=== PATIENT | female | born 1995 | race Caucasian/White ===

== ENCOUNTER 2017-04-13 19:11 | Emergency (ER) | payer BC, OTHER ==
[~2017-04-13] VITALS: Ht 167.6 cm; Wt 69.9 kg
[~2017-04-13 19:11] MED LIST: BUDE90AE IH; CYMBALTA; FIORICET; LAMICTAL; LEVA15HF5 IH; TRAZADONE; VIVANCE; [UNRECOGNIZED DRUG - REMARK]
[2017-04-13] MEDS ORDERED: PRED20TA PO (19:25)
[2017-04-13] MEDS ORDERED: ONDANSETRON 4 MG/2 ML VIAL IV ONE (21:15)
[2017-04-13] MEDS ORDERED: HYDROMORPHONE 1 MG/1 ML DISP.SYRIN IV ONE ×2 (21:15→23:00)
[2017-04-13] MEDS ORDERED: KETOROLAC TROMETHAMINE 30 MG INJ IVP ONE (21:15)
[2017-04-13] MEDS ORDERED: IV NORMAL SALINE 1000 ML BAG IV ONE ×3 (21:15→23:00)
--- NOTE | 2017-04-13 21:18 | NUR ---
Report given to Becka AVILA, Care endorsed.
--- NOTE | 2017-04-13 21:25 | NUR ---
lab at pt bedside
--- NOTE | 2017-04-13 21:32 | NUR ---
xray at pt bedside
[2017-04-13 21:33] LABS: BASOPHILS # (AUTO) 0.1 K/uL (0.0-8.0); BASOPHILS % (AUTO) 0.5 % (0.0-2.0); HEMATOCRIT 38.8 % (31.2-41.9); HEMOGLOBIN 13.1 g/dL (10.9-14.3); LYMPHOCYTES # (AUTO) 1.3 K/uL (20.0-40.0); LYMPHOCYTES % (AUTO) 11.7 % (20.5-51.5); MEAN CORPUSCULAR HEMOGLOBIN 29.6 uug (24.7-32.8); MEAN CORPUSCULAR HGB CONC 34 g/dL (32.3-35.6); MEAN CORPUSCULAR VOLUME 87.9 fL (75.5-95.3); MONOCYTES # (AUTO) 0.3 K/uL (2.0-10.0); MONOCYTES % (AUTO) 2.5 % (0.0-11.0); NEUTROPHILS # (AUTO) 9.3 K/uL (1.8-8.9); NEUTROPHILS % (AUTO) 85.3 % (38.5-71.5); PLATELET COUNT (AUTO) 253 K/uL (179-408); RED BLOOD CELL COUNT(AUTO) 4.42 MIL/uL (3.63-4.92); WHITE BLOOD COUNT (AUTO) 10.9 K/uL (3.8-11.8)
[2017-04-13 21:40] LABS: CREATININE 0.7 mg/dL (0.6-1.3); POTASSIUM 4.3 mmol/L (3.5-5.1)
[2017-04-13 21:54] LABS: BILIRUBIN,DIRECT 0.1 mg/dL (0.0-0.2); BILIRUBIN,TOTAL 0.3 mg/dL (0.2-1.0); TOTAL PROTEIN, SERUM 7.5 g/dL (6.4-8.2)
[2017-04-13] MEDS ORDERED: KETOROLAC TROMETHAMINE 30 MG INJ ONE (21:55)
[2017-04-13] MEDS ORDERED: HYDROMORPHONE 2 MG/1 ML DISP.SYRIN ONE ×2 (21:56→23:32)
[2017-04-13] MEDS ORDERED: ONDANSETRON 4 MG/2 ML VIAL ONE (21:56)
[2017-04-13 22:15] LABS: *MONOTEST NEGATIVE (NEGATIVE)
[2017-04-13 22:48] LABS: *URINE HCG, QUAL NEGATIVE (NEGATIVE)
--- NOTE | 2017-04-13 23:27 | NUR ---
Pt cont. to c/o severe BRYANT. Dr. Ley notified and pt medicated for discomfort. Will monitor for effects of medication.
--- NOTE | 2017-04-14 00:05 | NUR ---
Patient discharged to home in stable conditon. Written and verbal after care instructions given. Patient verbalizes understanding of instructions.
[2017-04-14 04:28] VITALS: BP 143/83
== END 2017-04-14 00:05 | disposition home or self-care (01) ==
LOC: ER 19:12
DX: G43.909 Migraine, unspecified, not intractable, without status migrainosus (principal); J45.909 Unspecified asthma, uncomplicated; Z88.0 Allergy status to penicillin; Z88.2 Allergy status to sulfonamides; M79.1 Myalgia
CPT/HCPCS: 36415; 71045; 80048; 80076; 84703; 85025; 85651; 86308; 87400; 96361; 96374; 96375; 96376; 99285; A4663; J1170 ×2; J1885; J2405; J7030

== ENCOUNTER 2019-02-16 12:44 | Emergency (ER) | payer BC, OTHER ==
[~2019-02-16] VITALS: Ht 167.6 cm; Wt 61.2 kg
[~2019-02-16 12:44] MED LIST changes: -LAMICTAL; +PRED20TA PO
[2019-02-16 13:06] LABS: *BILIRUBIN,URIN NEGATIVE (NEGATIVE); *BLOOD, URINE NEGATIVE (NEGATIVE); *CLARITY,URINE SLIGHTLY CLOUDY (CLEAR); *COLOR,URINE YELLOW (YELLOW); *KETONES,URINE 1+ (NEGATIVE); *UROBILINOGEN,URINE 0.2 E.U./dl (NORMAL); LEUKOCYTE ESTERASE ,URINE NEGATIVE (NEGATIVE); NITRITE, URINE NEGATIVE (NEGATIVE); UGLUCOSE NEGATIVE (NEGATIVE)
[2019-02-16 13:08] LABS: *URINE HCG, QUAL NEGATIVE (NEGATIVE)
[2019-02-16] MEDS ORDERED: IV NORMAL SALINE 1000 ML BAG IV ONE (13:15)
[2019-02-16] MEDS ORDERED: PANTOPRAZOLE SODIUM 40 MG VIAL IV ONE (13:15)
[2019-02-16] MEDS ORDERED: ONDANSETRON 4 MG/2 ML VIAL IV ONE (13:15)
[2019-02-16 13:17] LABS: BACTERIA,URINE FEW /HPF (NONE SEEN); MUCUS,URINE FEW /LPF (0-FEW); RBC,URINE NONE SEEN /HPF (0-3); SQUAMOUS EPITHELIAL CELL,UR FEW /HPF (NONE SEEN); WBC,URINE 0-3 /HPF (0-3)
[2019-02-16] MEDS ORDERED: PANTOPRAZOLE SODIUM 40 MG VIAL ONE (13:24)
[2019-02-16] MEDS ORDERED: ONDANSETRON 4 MG/2 ML VIAL ONE (13:24)
[2019-02-16 13:29] LABS: BASOPHILS % (AUTO) 0.9 % (0.0-2.0); EOSINOPHILS # (AUTO) 0.1 K/uL (0.0-0.7); HEMATOCRIT 41.4 % (31.2-41.9); HEMOGLOBIN 13.5 g/dL (10.9-14.3); LYMPHOCYTES # (AUTO) 2.2 K/uL (20.0-40.0); LYMPHOCYTES % (AUTO) 47.7 % (20.5-51.5); MEAN CORPUSCULAR HEMOGLOBIN 29.4 uug (24.7-32.8); MEAN CORPUSCULAR HGB CONC 33 g/dL (32.3-35.6); MEAN CORPUSCULAR VOLUME 90.1 fL (75.5-95.3); MONOCYTES # (AUTO) 0.2 K/uL (2.0-10.0); MONOCYTES % (AUTO) 3.7 % (0.0-11.0); NEUTROPHILS # (AUTO) 2.1 K/uL (1.8-8.9); NEUTROPHILS % (AUTO) 45.7 % (38.5-71.5); PLATELET COUNT (AUTO) 281 K/uL (179-408); RED BLOOD CELL COUNT(AUTO) 4.59 MIL/uL (3.63-4.92); WHITE BLOOD COUNT (AUTO) 4.6 K/uL (3.8-11.8)
--- NOTE | 2019-02-16 13:29 | NUR ---
pt is in room #1b. dr Kay evaluated the pt.
[2019-02-16 13:41] LABS: CREATININE 0.9 mg/dL (0.6-1.3); POTASSIUM 3.9 mmol/L (3.5-5.1)
[2019-02-16 13:45] LABS: BILIRUBIN,DIRECT 0.1 mg/dL (0.0-0.2); BILIRUBIN,TOTAL 0.5 mg/dL (0.2-1.0); TOTAL PROTEIN, SERUM 7.2 g/dL (6.4-8.2)
[2019-02-16] MEDS ORDERED: diphenhydrAMINE 50 MG/1 ML VIAL ONE (13:47)
[2019-02-16] MEDS ORDERED: METOCLOPRAMIDE HCL 10 MG/2 ML VIAL ONE (13:47)
[2019-02-16] MEDS ORDERED: MORPHINE SULFATE 2 MG/1 ML DISP.SYRIN ONE (13:48)
[2019-02-16] MEDS ORDERED: MORPHINE SULFATE 2 MG/1 ML DISP.SYRIN IV ONE (14:00)
[2019-02-16] MEDS ORDERED: diphenhydrAMINE 50 MG/1 ML VIAL IV ONE (14:00)
[2019-02-16] MEDS ORDERED: METOCLOPRAMIDE HCL 10 MG/2 ML VIAL IV ONE (14:00)
--- NOTE | 2019-02-16 14:36 | NUR ---
pt was d/c'd to home. d/c nstructions given to the pt.
[2019-02-16 14:37] VITALS: BP 129/71
== END 2019-02-16 14:38 | disposition home or self-care (01) ==
LOC: ER 12:44
DX: K62.5 Hemorrhage of anus and rectum (principal); R11.10 Vomiting, unspecified; G43.909 Migraine, unspecified, not intractable, without status migrainosus; J45.909 Unspecified asthma, uncomplicated; F32.9 Major depressive disorder, single episode, unspecified; F41.9 Anxiety disorder, unspecified; Z88.0 Allergy status to penicillin; Z88.2 Allergy status to sulfonamides; Z79.899 Other long term (current) drug therapy
CPT/HCPCS: 36415; 80048; 80076; 81000; 81001; 84703; 85025; 85730; 86850; 86900; 86901; 96361; 96374; 96375; 99283; C9113; J1200; J2270; J2405; J2765; A4663; J7030

== ENCOUNTER 2020-01-15 16:50 | Emergency (ER) | payer MEDICARE, BC, OTHER ==
[~2020-01-15] VITALS: Ht 167.6 cm; Wt 61.2 kg
[2020-01-15] MEDS ORDERED: METOCLOPRAMIDE HCL 10 MG/2 ML VIAL IV ONE (17:30)
[2020-01-15] MEDS ORDERED: IV NORMAL SALINE 1000 ML BAG IV ONE (17:30)
--- NOTE | 2020-01-15 17:48 | NUR ---
PT TALKED TO DR BARRETO AND STALIND AFTER THAT.
== END 2020-01-15 17:51 | disposition left against medical advice (07) ==
LOC: ER 16:50
DX: R51.9 Headache, unspecified (principal); G89.29 Other chronic pain; Q85.01 Neurofibromatosis, type 1; J45.909 Unspecified asthma, uncomplicated; F41.9 Anxiety disorder, unspecified; Z79.899 Other long term (current) drug therapy; Z86.69 Personal history of other diseases of the nervous system and sense organs; Z88.0 Allergy status to penicillin; Z88.2 Allergy status to sulfonamides
CPT/HCPCS: A4663

== ENCOUNTER 2022-04-03 20:18 | Emergency (ER) | payer OTHER ==
[~2022-04-03] VITALS: Ht 167.6 cm; Wt 61.2 kg
--- NOTE | 2022-04-03 21:03 | NUR ---
Dr. Ley evaluating patient at bedside. MSE in progress.
[2022-04-03] MEDS ORDERED: HYDROMORPHONE 1 MG/1 ML DISP.SYRIN IV ONE ×2 (21:15→23:00)
[2022-04-03] MEDS ORDERED: diphenhydrAMINE 50 MG/1 ML VIAL IV ONE (21:30)
[2022-04-03] MEDS ORDERED: METOCLOPRAMIDE HCL 10 MG/2 ML VIAL IV ONE ×2 (21:30→23:00)
[2022-04-03 21:45] LABS: HEMATOCRIT 39.2 % (31.2-41.9); MEAN CORPUSCULAR HEMOGLOBIN 28.2 uug (24.7-32.8); MEAN CORPUSCULAR VOLUME 84.9 fL (75.5-95.3); PLATELET COUNT (AUTO) 427 K/uL (179-408)
[2022-04-03 22:02] LABS: BILIRUBIN,DIRECT 0.1 mg/dL (0.0-0.2); BILIRUBIN,TOTAL 0.3 mg/dL (0.2-1.0); CREATININE 0.8 mg/dL (0.6-1.3); POTASSIUM 3.5 mmol/L (3.5-5.1); TOTAL PROTEIN, SERUM 8.2 g/dL (6.4-8.2)
[2022-04-03] MEDS ORDERED: diphenhydrAMINE 50 MG/1 ML VIAL ONE (22:08)
[2022-04-03] MEDS ORDERED: METOCLOPRAMIDE HCL 10 MG/2 ML VIAL ONE ×2 (22:09→23:06)
[2022-04-03] MEDS ORDERED: HYDROMORPHONE 1 MG/1 ML DISP.SYRIN ONE ×2 (22:09→23:07)
[2022-04-03] MEDS ORDERED: IV NORMAL SALINE 1000 ML BAG IV ONE (22:30)
[2022-04-03] MEDS ORDERED: METO-295 PO (22:49)
[2022-04-03] MEDS ORDERED: DIPH25TA25 PO (22:49)
--- NOTE | 2022-04-03 23:51 | NUR ---
Patient discharged to home in stable condition. Written and verbal after care instructions given. Instructed patient not to drive. Patient verbalizes understanding of instructions. Stressed follow up or return to ER for worsening s/s.
[2022-04-03 23:55] VITALS: BP 129/81
== END 2022-04-03 23:51 | disposition home or self-care (01) ==
LOC: ER 20:23
DX: J06.9 Acute upper respiratory infection, unspecified (principal); R11.2 Nausea with vomiting, unspecified; G43.909 Migraine, unspecified, not intractable, without status migrainosus; G89.4 Chronic pain syndrome; Z20.822 Contact with and (suspected) exposure to COVID-19; Z88.0 Allergy status to penicillin; Z88.2 Allergy status to sulfonamides; J45.909 Unspecified asthma, uncomplicated; F11.20 Opioid dependence, uncomplicated; F13.20 Sedative, hypnotic or anxiolytic dependence, uncomplicated
CPT/HCPCS: 99284; 96374; 96375; 71045; 96361; 87426; 80076; 80048; 83690; 85025; 87400; 84702; 36415; 96376; U0003; C9803; J1200; J2765 ×2; J1170 ×2; A4663

== ENCOUNTER 2022-04-26 11:41 | Emergency (ER) | payer OTHER ==
[~2022-04-26] VITALS: Ht 167.6 cm; Wt 61.2 kg
[~2022-04-26 11:41] MED LIST changes: +DIPH25TA25 PO; +METO-295 PO
--- NOTE | 2022-04-26 12:16 | NUR ---
[email or web address], medical screening exam in progress
[2022-04-26] MEDS ORDERED: IV NORMAL SALINE 1000 ML BAG IV ONE (12:30)
[2022-04-26] MEDS ORDERED: ONDANSETRON 4 MG/2 ML VIAL IV ONE (12:30)
[2022-04-26] MEDS ORDERED: ONDANSETRON 4 MG/2 ML VIAL ONE (12:41)
[2022-04-26 12:47] LABS: HEMATOCRIT 38.5 % (31.2-41.9); MEAN CORPUSCULAR VOLUME 84.8 fL (75.5-95.3); PLATELET COUNT (AUTO) 259 K/uL (179-408)
[2022-04-26 13:01] LABS: BILIRUBIN,DIRECT 0.1 mg/dL (0.0-0.2); BILIRUBIN,TOTAL 0.4 mg/dL (0.2-1.0); CREATININE 0.9 mg/dL (0.6-1.3); POTASSIUM 4.6 mmol/L (3.5-5.1); TOTAL PROTEIN, SERUM 8.3 g/dL (6.4-8.2)
[2022-04-26 13:06] LABS: *BILIRUBIN,URIN NEGATIVE (NEGATIVE); *CLARITY,URINE CLEAR (CLEAR); *COLOR,URINE YELLOW (YELLOW); *KETONES,URINE NEGATIVE (NEGATIVE); *UROBILINOGEN,URINE 0.2 E.U./dl (NORMAL); LEUKOCYTE ESTERASE ,URINE NEGATIVE (NEGATIVE); NITRITE, URINE POSITIVE (NEGATIVE); PH,URINE 5.5 (5.0-8.0); UGLUCOSE NEGATIVE (NEGATIVE)
[2022-04-26 13:09] LABS: *BLOOD, URINE TRACE (NEGATIVE)
[2022-04-26] MEDS ORDERED: METOCLOPRAMIDE HCL 10 MG/2 ML VIAL ONE (13:13)
[2022-04-26] MEDS ORDERED: HYDROMORPHONE 1 MG/1 ML DISP.SYRIN ONE (13:13)
[2022-04-26] MEDS ORDERED: HYDROMORPHONE 1 MG/1 ML DISP.SYRIN IV ONE (13:15)
[2022-04-26] MEDS ORDERED: METOCLOPRAMIDE HCL 10 MG/2 ML VIAL IV ONE (13:15)
[2022-04-26] MEDS ORDERED: CEFTRIAXONE 1 G in IV DEXTROSE 5% 50 ML IV ONE (13:30)
[2022-04-26] MEDS ORDERED: CEFTRIAXONE /D5W 50ML IVPB **ER PYXIS IV ONE (13:34)
[2022-04-26] MEDS ORDERED: ACETAMINOPHEN 325 MG TABLET PO ONE (13:45)
[2022-04-26] MEDS ORDERED: ACETAMINOPHEN 325 MG TABLET ONE (14:11)
--- NOTE | 2022-04-26 14:14 | NUR ---
Patient refused po Tylenol. Rectal Tylenol was offered but patient refused rectal Tylenol as well. "I just want to go home." per patient. notified.
[2022-04-26] MEDS ORDERED: MAG HYDROX/AL HYDROX/SIMETH 30 ML LIQUID UDC ONE (14:17)
[2022-04-26] MEDS ORDERED: MAG HYDROX/AL HYDROX/SIMETH 30 ML LIQUID UDC PO ONE (14:30)
--- NOTE | 2022-04-26 14:35 | NUR ---
Patient came to RN station and said, "Can I go home? I feel better." Patient reported that her burning sensation in the abdominal area is gone. Patient refused to do further po challenge with clear liquids at this time. MD notified.
[2022-04-26] MEDS ORDERED: CIPR500T5 PO (14:38)
--- NOTE | 2022-04-26 14:41 | NUR ---
Patient is for discharge now per patient's request. IV removed. Catheter intact and site benign. Pressure and 4x4 gauze applied to site. No bleeding noted.
--- NOTE | 2022-04-26 14:50 | NUR ---
Patient does not wish to proceed with medical care recommended by Dr. Solano. Patient given information related to possible complications, up to and including , which could occur as a result of leaving the hospital at this time. Patient verbalizes understanding of risks involved due to leaving against medical advice. Patient has signed AMA form.
[2022-04-26 15:22] LABS: RBC,URINE 0-3 /HPF (0-3); WBC,URINE 0-3 /HPF (0-3)
[2022-04-26 15:23] LABS: BACTERIA,URINE FEW /HPF (NONE SEEN); SQUAMOUS EPITHELIAL CELL,UR FEW /HPF (NONE SEEN)
== END 2022-04-26 14:54 | disposition left against medical advice (07) ==
LOC: ER 11:41
DX: N39.0 Urinary tract infection, site not specified (principal); R11.2 Nausea with vomiting, unspecified; Z88.0 Allergy status to penicillin; Z88.2 Allergy status to sulfonamides; Z88.8 Allergy status to other drugs, medicaments and biological substances; Q85.02 Neurofibromatosis, type 2; G89.29 Other chronic pain; F13.20 Sedative, hypnotic or anxiolytic dependence, uncomplicated; F11.20 Opioid dependence, uncomplicated; F41.9 Anxiety disorder, unspecified; D83.9 Common variable immunodeficiency, unspecified
CPT/HCPCS: 99285; 96365; 96375; 71045; 96361; 80076; 80048; 81001; 83690; 85025; 84702; 36415; 93005; J0696; J2765; J2405; J1170; J7040; A4663

== ENCOUNTER 2022-07-06 16:30 | Emergency (ER) | payer OTHER ==
[~2022-07-06] VITALS: Ht 167.6 cm; Wt 61.2 kg
[~2022-07-06 16:30] MED LIST changes: +CIPR500T5 PO
--- NOTE | 2022-07-06 16:46 | NUR ---
PT IS IN ROOM #2B. DR NGUYEN EVALUATED THE PT.
[2022-07-06] MEDS ORDERED: PROCHLORPERAZINE EDISYLATE 10 MG/2 ML VIAL ONE (16:57)
[2022-07-06] MEDS ORDERED: diphenhydrAMINE 50 MG/1 ML VIAL ONE (16:57)
[2022-07-06] MEDS ORDERED: KETOROLAC TROMETHAMINE 30 MG INJ ONE (16:57)
[2022-07-06] MEDS ORDERED: IV NORMAL SALINE 1000 ML BAG IV ONE (17:00)
[2022-07-06] MEDS ORDERED: diphenhydrAMINE 50 MG/1 ML VIAL IV ONE (17:00)
[2022-07-06] MEDS ORDERED: PROCHLORPERAZINE EDISYLATE 10 MG/2 ML VIAL IV ONE (17:00)
[2022-07-06] MEDS ORDERED: KETOROLAC TROMETHAMINE 30 MG INJ IVP ONE (17:00)
[2022-07-06] MEDS ORDERED: PROC-11 PO (17:10)
[2022-07-06 17:47] VITALS: BP 128/71
--- NOTE | 2022-07-06 17:48 | NUR ---
PT WAS D/C'd TO HOME. D/C INSTRUCTIONS GIVEN TO THE PT BY DR NGUYEN.
== END 2022-07-06 18:03 | disposition home or self-care (01) ==
LOC: ER 16:30
DX: G43.909 Migraine, unspecified, not intractable, without status migrainosus (principal); J45.909 Unspecified asthma, uncomplicated; Z88.0 Allergy status to penicillin; Z88.2 Allergy status to sulfonamides; Z88.8 Allergy status to other drugs, medicaments and biological substances; Z79.2 Long term (current) use of antibiotics; Z79.899 Other long term (current) drug therapy
CPT/HCPCS: 99284; 96374; 96375; 96361; J1200; J1885; J0780; J7040; A4663

== ENCOUNTER 2022-09-13 12:07 | Emergency (ER) | payer OTHER ==
[~2022-09-13] VITALS: Ht 167.6 cm; Wt 69.9 kg
[~2022-09-13 12:07] MED LIST changes: +PROC-11 PO; -VIVANCE; +VIVANCE PO
--- NOTE | 2022-09-13 12:43 | NUR ---
PT IS IN ROOM #2B. DR BELTRAN EVALUATED THE PT.
[2022-09-13 12:47] LABS: HEMATOCRIT 34.4 % (31.2-41.9); MEAN CORPUSCULAR HEMOGLOBIN 28.3 uug (24.7-32.8); MEAN CORPUSCULAR VOLUME 86.2 fL (75.5-95.3); PLATELET COUNT (AUTO) 299 K/uL (179-408)
[2022-09-13 12:57] LABS: CREATININE 0.9 mg/dL (0.6-1.3)
[2022-09-13] MEDS ORDERED: ACETAMINOPHEN ES 500 MG TABLET ONE (13:53)
[2022-09-13 13:56] VITALS: BP 128/72
--- NOTE | 2022-09-13 13:57 | NUR ---
PT WAS D/C'd TO HOME. D/C INSTRUCTIONS GIVEN TO THE PT BY DR BELTRAN.
[2022-09-13] MEDS ORDERED: ACETAMINOPHEN ES 500 MG TABLET PO ONE (14:00)
== END 2022-09-13 13:57 | disposition home or self-care (01) ==
LOC: ER 12:07
DX: O03.4 Incomplete spontaneous abortion without complication (principal); R10.2 Pelvic and perineal pain; G43.909 Migraine, unspecified, not intractable, without status migrainosus; J45.909 Unspecified asthma, uncomplicated; Z90.89 Acquired absence of other organs; Z88.0 Allergy status to penicillin; Z88.2 Allergy status to sulfonamides; Z88.8 Allergy status to other drugs, medicaments and biological substances; Z79.899 Other long term (current) drug therapy
CPT/HCPCS: 36415; 76856; 85025; 86850; 86900; 86901; A4663; A9150

== ENCOUNTER 2022-09-14 05:45 | Emergency (ER) | payer OTHER ==
--- NOTE | 2022-09-14 06:21 | NUR ---
Patient was called to be triaged but was not present in the waiting room or outside of ER.
--- NOTE | 2022-09-14 06:32 | NUR ---
Patient was called to be triaged but was not present in the waiting room or outside of ER.
--- NOTE | 2022-09-14 06:52 | NUR ---
Patient was called to be triaged but was not present in the waiting room or outside of ER. PATIENT WAS NOT TRIAGED OR SEEN BY ERMD.
== END 2022-09-14 06:55 | disposition left against medical advice (07) ==
LOC: ER 05:55
DX: Z53.21 Procedure and treatment not carried out due to patient leaving prior to being seen by health care provider (principal)

== ENCOUNTER 2022-12-02 17:18 | Emergency (ER) | payer OTHER ==
[~2022-12-02] VITALS: Ht 167.6 cm; Wt 63.5 kg
[~2022-12-02 17:18] MED LIST changes: -CIPR500T5 PO; -CYMBALTA; -FIORICET; -PROC-11 PO; -TRAZADONE; -[UNRECOGNIZED DRUG - REMARK]
[2022-12-02 17:23] VITALS: O2SAT 96
[2022-12-02] MEDS ORDERED: diphenhydrAMINE 50 MG/1 ML VIAL IV ONE (18:15)
[2022-12-02] MEDS ORDERED: IV NORMAL SALINE 1000 ML BAG IV ONE (18:15)
[2022-12-02] MEDS ORDERED: METOCLOPRAMIDE HCL 10 MG/2 ML VIAL IV ONE (18:15)
[2022-12-02] MEDS ORDERED: METOCLOPRAMIDE HCL 10 MG/2 ML VIAL ONE (18:25)
[2022-12-02] MEDS ORDERED: diphenhydrAMINE 50 MG/1 ML VIAL ONE (18:25)
== END 2022-12-02 19:14 | disposition left against medical advice (07) ==
LOC: ER 17:37
DX: G43.909 Migraine, unspecified, not intractable, without status migrainosus (principal); J45.909 Unspecified asthma, uncomplicated; Z88.0 Allergy status to penicillin; Z88.2 Allergy status to sulfonamides; Z88.8 Allergy status to other drugs, medicaments and biological substances; Z79.899 Other long term (current) drug therapy
CPT/HCPCS: 99284; 96374; 96361; 96375; J1200; J2765; J7040; A4663

== ENCOUNTER 2024-01-03 19:06 | Emergency (ER) | payer OTHER ==
[~2024-01-03] VITALS: Ht 170.2 cm; Wt 52.2 kg
[2024-01-03] MEDS ORDERED: CARISOPRODOL 350 MG TABLET ONE (19:59)
[2024-01-03] MEDS ORDERED: HYDROMORPHONE HCL 2 MG TABLET ONE (19:59)
[2024-01-03] MEDS ORDERED: METOCLOPRAMIDE HCL 10 MG/2 ML VIAL ONE (19:59)
[2024-01-03] MEDS ORDERED: diphenhydrAMINE 50 MG/1 ML VIAL ONE (19:59)
[2024-01-03] MEDS: HYDROMORPHONE HCL 2 MG TABLET PO ONE (20:03)
[2024-01-03] MEDS: CARISOPRODOL 350 MG TABLET PO ONE (20:03)
[2024-01-03 20:09] LABS: BASOPHILS # (AUTO) 0.1 K/UL (0.0-0.2); BASOPHILS % (AUTO) 1.2 % (0.0-2.0); DIFFERENTIAL COMMENT 1; EOSINOPHILS % (AUTO) 0.1 % (0.0-7.0); HEMATOCRIT 39.8 % (31.2-41.9); HEMOGLOBIN 13.4 g/dL (10.9-14.3); LYMPHOCYTES # (AUTO) 2.4 K/uL (0.8-4.8); LYMPHOCYTES % (AUTO) 35.4 % (20.5-51.5); MEAN CORPUSCULAR HEMOGLOBIN 30.5 uug (24.7-32.8); MEAN CORPUSCULAR HGB CONC 34 g/dL (32.3-35.6); MEAN CORPUSCULAR VOLUME 90.7 fL (75.5-95.3); MONOCYTES # (AUTO) 0.3 K/uL (0.1-1.30); MONOCYTES % (AUTO) 4.2 % (0.0-11.0); NEUTROPHILS % (AUTO) 59.1 % (38.5-71.5); PLATELET COUNT (AUTO) 288 K/uL (179-408); RED BLOOD CELL COUNT(AUTO) 4.39 MIL/uL (3.63-4.92); RED CELL DISTRIBUTION WIDTH 13.6 % (12.3-17.7); WHITE BLOOD COUNT (AUTO) 6.7 K/uL (3.8-11.8)
[2024-01-03] MEDS: METOCLOPRAMIDE HCL 10 MG/2 ML VIAL IV ONE (20:14)
[2024-01-03] MEDS: diphenhydrAMINE 50 MG/1 ML VIAL IV ONE (20:14)
[2024-01-03 20:15] LABS: CALCIUM 9.1 mg/dL (8.5-10.1); CREATININE 1.1 mg/dL (0.6-1.3)
[2024-01-03] MEDS: IV NORMAL SALINE 1000 ML BAG IV ONE (20:18)
[2024-01-03 20:21] LABS: ALBUMIN 4.7 g/dL (3.4-5.0); BILIRUBIN,TOTAL 0.5 mg/dL (0.2-1.0); TOTAL PROTEIN, SERUM 7.6 g/dL (6.4-8.2)
[2024-01-03 21:18] VITALS: BP 118/74; TEMP 97.2; O2SAT 100
== END 2024-01-03 21:18 | disposition home or self-care (01) ==
LOC: ER 19:09
DX: Q85.02 Neurofibromatosis, type 2 (principal); J02.9 Acute pharyngitis, unspecified; R51.9 Headache, unspecified; G89.4 Chronic pain syndrome; J45.909 Unspecified asthma, uncomplicated; F32.A Depression, unspecified; Z20.822 Contact with and (suspected) exposure to COVID-19; Z98.890 Other specified postprocedural states; Z79.899 Other long term (current) drug therapy; Z88.0 Allergy status to penicillin; Z88.2 Allergy status to sulfonamides; Z88.1 Allergy status to other antibiotic agents
CPT/HCPCS: 99284; 96374; 96361; 96375; 87426; 87804 ×2; 80053; 85025; 36415; J1200; J2765; J7040; A4606; A4663

== ENCOUNTER 2025-02-17 17:57 | Emergency (ER) | payer OTHER ==
[~2025-02-17] VITALS: Ht 170.2 cm; Wt 52.2 kg
[2025-02-17 18:03] VITALS: BP 122/75; O2SAT 99
[2025-02-17] MEDS ORDERED: DEXAMETHASONE SOD PHOSPHATE 4 MG INJ ONE (18:23)
[2025-02-17] MEDS: DEXAMETHASONE SOD PHOSPHATE 4 MG INJ IM ONE (18:29)
[2025-02-17] MEDS ORDERED: HYDR28OI2 TP (18:34)
[2025-02-17] MEDS ORDERED: PRED20TA PO (18:34)
== END 2025-02-17 18:44 | disposition home or self-care (01) ==
LOC: ER 17:57
DX: R21 Rash and other nonspecific skin eruption (principal); F11.20 Opioid dependence, uncomplicated; D83.9 Common variable immunodeficiency, unspecified; F13.20 Sedative, hypnotic or anxiolytic dependence, uncomplicated; G83.9 Paralytic syndrome, unspecified; G89.29 Other chronic pain; J45.909 Unspecified asthma, uncomplicated; L29.9 Pruritus, unspecified; Q85.02 Neurofibromatosis, type 2; Z79.51 Long term (current) use of inhaled steroids; Z88.0 Allergy status to penicillin; Z88.2 Allergy status to sulfonamides; Z88.7 Allergy status to serum and vaccine; Z88.8 Allergy status to other drugs, medicaments and biological substances; Z79.52 Long term (current) use of systemic steroids
CPT/HCPCS: 99283; Q0163; J7512; A4606; A4663; J1100

== ENCOUNTER 2025-03-23 08:05 | Emergency (ER) | payer OTHER ==
[~2025-03-23] VITALS: Ht 170.2 cm; Wt 55.3 kg
[~2025-03-23 08:05] MED LIST changes: -BUDE90AE IH; +BUDE90AE3 IH; +HYDR28OI2 TP
[2025-03-23] MEDS ORDERED: diphenhydrAMINE 50 MG/1 ML VIAL ONE (09:10)
[2025-03-23] MEDS ORDERED: HALOPERIDOL LACTATE 5 MG/1 ML VIAL ONE ×3 (09:10→11:27)
[2025-03-23] MEDS: IV NORMAL SALINE 1000 ML BAG IV ONE (09:10)
[2025-03-23] MEDS: HALOPERIDOL LACTATE 5 MG/1 ML VIAL IV ONE ×3 (09:16→11:29)
[2025-03-23] MEDS: diphenhydrAMINE 50 MG/1 ML VIAL IV ONE (09:17)
[2025-03-23 09:22] LABS: PLATELET COUNT (AUTO) 270 K/uL (179-408); RED BLOOD CELL COUNT(AUTO) 4.59 MIL/uL (3.63-4.92); RED CELL DISTRIBUTION WIDTH 13.5 % (12.3-17.7); WHITE BLOOD COUNT (AUTO) 4.8 K/uL (3.8-11.8)
[2025-03-23 10:01] LABS: ASPARTATE AMINOTRANSFERASE 10.0 U/L (15-37); CREATININE 0.8 mg/dL (0.6-1.3); SODIUM SERUM 137.0 mmol/L (136-145); TOTAL PROTEIN, SERUM 8.2 g/dL (6.4-8.2); UREA NITROGEN, BLOOD 12.0 mg/dL (7-18)
[2025-03-23 10:10] LABS: *CLARITY,URINE CLEAR (CLEAR); *COLOR,URINE YELLOW (YELLOW); *KETONES,URINE 4+ (NEGATIVE); *PROTEIN,URINE 1+ (NEGATIVE); *UROBILINOGEN,URINE 0.2 E.U./dl (NORMAL); LEUKOCYTE ESTERASE ,URINE NEGATIVE (NEGATIVE); NITRITE, URINE NEGATIVE (NEGATIVE); UGLUCOSE NEGATIVE (NEGATIVE)
[2025-03-23 10:11] LABS: *BILIRUBIN,URIN 2+ (NEGATIVE); *BLOOD, URINE TRACE (NEGATIVE)
[2025-03-23] MEDS ORDERED: MAGNESIUM HYDROXIDE 30 ML LIQUID UDC ONE (10:20)
[2025-03-23] MEDS: MAGNESIUM HYDROXIDE 30 ML LIQUID UDC PO ONE (10:22)
[2025-03-23 10:27] LABS: SQUAMOUS EPITHELIAL CELL,UR FEW /HPF (NONE SEEN)
[2025-03-23] MEDS ORDERED: FLEET ENEMA 133 ML BOTTLE RC ONE (10:57)
[2025-03-23 10:59] VITALS: BP 135/75
[2025-03-23] MEDS: FLEET ENEMA 133 ML BOTTLE RC ONE (10:59)
[2025-03-23] MEDS: IV NS 1000 ML 1,000 ML IV ONE (11:29)
[2025-03-23] MEDS ORDERED: HALO1TAB2 PO (12:23)
[2025-03-23 12:41] VITALS: BP 132/77; TEMP 98; O2SAT 100
== END 2025-03-23 12:41 | disposition home or self-care (01) ==
LOC: ER 08:05
DX: R11.2 Nausea with vomiting, unspecified (principal); K59.00 Constipation, unspecified; B34.9 Viral infection, unspecified; E86.0 Dehydration; F11.20 Opioid dependence, uncomplicated; F13.20 Sedative, hypnotic or anxiolytic dependence, uncomplicated; G89.29 Other chronic pain; J45.909 Unspecified asthma, uncomplicated; Q85.02 Neurofibromatosis, type 2; Z79.51 Long term (current) use of inhaled steroids; Z79.52 Long term (current) use of systemic steroids; Z87.19 Personal history of other diseases of the digestive system; Z88.0 Allergy status to penicillin; Z88.2 Allergy status to sulfonamides; Z88.7 Allergy status to serum and vaccine; Z88.8 Allergy status to other drugs, medicaments and biological substances
CPT/HCPCS: 99285; 96374; 96361; 96375; 80076; 80048; 81001; 83690; 85025; 36415; 74018; 93005; 96376; 83605; J1200; J1630 ×3; J7040 ×2; A4606; A4663